=== PATIENT | male | born 1980 | race Two or more races ===

== ENCOUNTER 2024-08-11 07:33 | Day surgery (SDC) | payer OTHER ==
[2024-08-05 08:59] VITALS: BP 127/81
[2024-08-05 09:02] LABS: PH,URINE 6.5 (5.0-8.0); URINE APPEARANCE Clear; URINE BILIRRUBIN Negative (NEGATIVE); URINE BLOOD Negative; URINE COLOR Yellow; URINE GLUCOSE Negative (NEGATIVE); URINE KETONE Negative (NEGATIVE); URINE LEUKOCYTE Negative; URINE NITRATE Negative; URINE PROTEIN Negative (NEGATIVE); URINE UROBILINOGEN 0.2 E.U./dl
[2024-08-05 09:06] LABS: HEMATOCRIT 42.5 % (39.0-48.0); HEMOGLOBIN 14.5 g/dL (13-16.00); MEAN CELL VOLUME 94.5 fL (80.0-100.00); MEAN CORPUSCULAR HEMOGLOBIN 32.2 pg (27.00-32.0); PLATELET COUNT 410 K/uL (150-450); RED CELL DISTRIBUTION WIDTH 12.9 % (11.5-14.5); URINE WBC 5.4 uL (0.0-23.2)
[2024-08-05 09:17] LABS: URINE BACTERIA 3.6 uL (0.0-1933); URINE EPITHELIAL CELLS 0.7 uL (0.0-38.8)
[2024-08-05 09:30] LABS: PARTIAL THROMBOPLASTIN TIME 26.8 SECONDS (22.0-34.0); PROTHROMBIN TIME 10.9 SECONDS (9.0-11.5)
[2024-08-05 09:34] LABS: ALBUMIN 4.1 gm/dL (3.4-5.0); BILIRUBIN TOTAL 0.32 mg/dL (0.3-1.2); CREATININE SERUM 0.88 mg/dL (0.70-1.30); GFR 94.97; GLOBULINA 3.8 G/DL (2.4-3.5); POTASSIUM 5.17 mEq/L (3.5-5.1); TOTAL PROTEIN 7.9 gm/dL (6.4-8.2)
[~2024-08-11] VITALS: Ht 162.6 cm; Wt 90.7 kg
[2024-08-11] MEDS ORDERED: DEXAMETHASONE SODIUM PHOSPHATE 4 MG/ML VIAL ONE (11:27)
[2024-08-11] MEDS ORDERED: PHENYLEPHRINE HCL 10 MG/ML AMPUL ONE (11:54)
[2024-08-11] MEDS ORDERED: PHENYLEPHRINE HCL 1% NASAL DROPS ONE (11:55)
[2024-08-11] MEDS ORDERED: SUGAMMADEX SODIUM 200 MG/2 ML VIAL IV ONE (12:41)
== END 2024-08-11 17:45 | disposition home or self-care (01) ==
LOC: CIR.AMB 07:33
PROVIDERS: ATTEND Otolaryngology
DX: J35.1 Hypertrophy of tonsils (principal); G47.33 Obstructive sleep apnea (adult) (pediatric)

== ENCOUNTER 2024-08-17 14:09 | Inpatient (IN) | payer OTHER ==
[~2024-08-17] VITALS: Ht 162.6 cm; Wt 45.4 kg
[2024-08-17] MEDS ORDERED: ACETAMINOPHEN80 M2 (14:32)
[2024-08-17] MEDS ORDERED: ZANAFLEX4 MG PO (14:33)
[2024-08-17] MEDS ORDERED: IBUPROFEN800 MG PO (14:34)
[2024-08-17] MEDS ORDERED: DEXAMETHASONE0.5 MG PO (14:36)
--- NOTE | 2024-08-17 14:37 | NUR ---
SE PRESENTA PACIENTE ALERTA Y CONCIENTE X3. EL MISMO REFIERE TENER DOLOR EN [place] [address]. REFIERE MAXINE SIDO OPERADO DE [place] EL 5 DE 2024. REFIERE TENER [place] EN LA OPERACION REALIZADA. SE PROCEDE A JACKIE S/V AL PACIENTE Y SE UBICA.
[2024-08-17] MEDS ORDERED: MORPHINE SULFATE 4 MG/ML VIAL IV ONE (15:45)
[2024-08-17] MEDS ORDERED: 0.9 % SODIUM CHLORIDE 1,000 ML IV ONE (15:45)
[2024-08-17 16:34] LABS: BASO % 0.3 % (0.1-1.2); EOS # 0.02 (0.04-0.54); EOS % 0.2 % (0.7-7.0); HEMATOCRIT 43.3 % (40.1-51.0); HEMOGLOBIN 14.7 g/dL (13.7-17.5); LYMPH # 2.12 (1.18-3.74); LYMPH % 17.8 % (19.3-53.1); MEAN CORPUSCULAR HEMOGLOBIN 30.9 pg (25.6-32.2); MONO # 0.83 (0.24-0.82); NEUT # 8.89 (1.56-6.13); NEUT % 74.4 % (34.0-71.1); PLATELET COUNT 439 K/uL (163-369); RED BLOOD COUNT 4.76 M/uL (4.63-6.08); RED CELL DISTRIBUTION WIDTH 11.4 % (11.6-14.4)
--- NOTE | 2024-08-17 16:48 | NUR ---
SE ORIENTA PTE SOBRE [place] MEDICO Y PTE REFIERE ENTENDER. SE ADMINISTRAN MEDICAMENTOS Y SE REALIZA MARNIE DE MUESTRAS RADHA ORDEN MEDICA Y BAJO MEDIDAS ASEPTICAS. SE UBICA EN AREA DE OBSERVACION RADHA ORDEN MEDICA.
[2024-08-17 17:01] LABS: INR 1.09; PARTIAL THROMBOPLASTIN TIME 25.2 SECONDS (22.0-34.0); PROTHROMBIN TIME 11.8 SECONDS (9.0-11.5)
[2024-08-17 17:09] LABS: BILIRUBIN TOTAL 0.61 mg/dL (0.3-1.2); CALCIUM 9.7 mg/dL (8.5-10.1); CREATININE SERUM 1.11 mg/dL (0.70-1.30); GFR 72.65; GLOBULINA 4.2 G/DL (2.4-3.5); POTASSIUM 3.8 mEq/L (3.5-5.1); TOTAL PROTEIN 8.2 gm/dL (6.4-8.2)
[2024-08-17] MEDS ORDERED: 0.9 % SODIUM CHLORIDE 1,000 ML IV SCH (18:30)
[2024-08-17] MEDS ORDERED: ACETAMINOPHEN 500 MG GEL..CAP PO PRN (18:30)
[2024-08-17] MEDS ORDERED: MORPHINE SULFATE 4 MG/ML VIAL IV PRN (18:30)
[2024-08-17] MEDS ORDERED: PIPERACILLIN/TAZOBACTAM SODIUM 3.375 GM in 0.9 % SODIUM CHLORIDE 100 ML IV SCH (19:00)
[2024-08-17] MEDS ORDERED: PIPERACILLIN/TAZOBACTAM SODIUM 3.375 GM VIAL IV ONE (19:23)
[2024-08-17] MEDS ORDERED: GABAPENTIN 100 MG CAPSULE PO SCH (21:00)
[2024-08-17 21:11] VITALS: BP 116/82; O2SAT 97
[2024-08-18 00:58] VITALS: BP 122/71; O2SAT 98
[2024-08-18] MEDS ORDERED: MORPHINE SULFATE 4 MG,MORPHINE SULFATE 2 MG IV PRN (07:00)
[2024-08-18 08:00] VITALS: BP 118/80; O2SAT 95
[2024-08-18] MEDS ORDERED: FAMOTIDINE/PF 20 MG/2 ML VIAL IV SCH (09:00)
[2024-08-18 15:51] VITALS: BP 123/83; O2SAT 97
[2024-08-19 00:47] VITALS: BP 117/73; O2SAT 96
[2024-08-19 08:00] VITALS: BP 113/76; O2SAT 97
[2024-08-19 16:00] VITALS: BP 104/70; O2SAT 98
[2024-08-20 01:48] VITALS: BP 118/76; O2SAT 98
[2024-08-20 07:38] LABS: BASO % 0.6 % (0.1-1.2); EOS # 0.11 (0.04-0.54); EOS % 1.2 % (0.7-7.0); HEMATOCRIT 33.9 % (40.1-51.0); HEMOGLOBIN 11.2 g/dL (13.7-17.5); LYMPH # 2.28 (1.18-3.74); LYMPH % 25.9 % (19.3-53.1); MEAN CORPUSCULAR HEMOGLOBIN 30.9 pg (25.6-32.2); MONO # 0.61 (0.24-0.82); MONO % 6.9 % (4.7-12.5); NEUT # 5.74 (1.56-6.13); NEUT % 65.1 % (34.0-71.1); PLATELET COUNT 395 K/uL (163-369); RED BLOOD COUNT 3.62 M/uL (4.63-6.08); RED CELL DISTRIBUTION WIDTH 11.1 % (11.6-14.4)
[2024-08-20 08:00] VITALS: BP 102/69; O2SAT 95
[2024-08-20 08:10] LABS: ALBUMIN 2.9 gm/dL (3.4-5.0); BILIRUBIN TOTAL 0.39 mg/dL (0.3-1.2); CALCIUM 8.9 mg/dL (8.5-10.1); CREATININE SERUM 0.92 mg/dL (0.70-1.30); GFR 90.22; GLOBULINA 3.3 G/DL (2.4-3.5); POTASSIUM 3.87 mEq/L (3.5-5.1); TOTAL PROTEIN 6.2 gm/dL (6.4-8.2)
[2024-08-20 16:00] VITALS: BP 116/80; O2SAT 96
[2024-08-21 01:25] VITALS: BP 127/78; O2SAT 98
[2024-08-21 08:35] VITALS: BP 135/84; O2SAT 95
== END 2024-08-21 14:14 | disposition home or self-care (01) | DRG 948 ==
LOC: ER 14:12 → SURG 18:36 → SURH 19:16
PROVIDERS: Preventive Medicine Public Health & General Preventive Medicine; ADMIT Internal Medicine; ATTEND Internal Medicine
DX: G89.18 Other acute postprocedural pain (principal); K91.841 Postprocedural hemorrhage of a digestive system organ or structure following other procedure; D72.828 Other elevated white blood cell count; R13.19 Other dysphagia; R07.0 Pain in throat; G47.33 Obstructive sleep apnea (adult) (pediatric)